=== PATIENT | female | born 1985 | race Caucasian/White ===

== ENCOUNTER 2016-05-03 23:59 | Emergency (ER) | payer OTHER ==
[2016-05-04 00:05] VITALS: BP 120/76; PULSE 82; TEMP 98.9; BMI 23.3
--- NOTE | 2016-05-04 01:40 | PDOC ---
History of Present Illness - General Chief Complaint: Pain Stated Complaint: BACK PAIN Time Seen by Provider: 05/04/16 00:53 - History of Present Illness Initial Comments: This 30-year-old woman with significant past medical history presents with 2 day history of intermittent right flank pain. Patient states that approximately 24 hours prior to presentation, she had onset of sharp pain in the right CVA/flank area. This was accompanied by mild nausea without vomiting. No fever/chills. Patient denies hematuria/urinary frequency or urgency or dysuria. No previous history of kidney stones or UTI. Patient took Tylenol with resolution of the pain last night. This evening, approximately 3 hours prior to presentation, patient had onset of similar pain. The patient had eaten approximately 2 hours prior to the onset of pain in each episode. No history of gallstones or other biliary pathology. She has irritable bowel syndrome but no other gastrointestinal issues. Family history of fatty liver but no known history of kidney stones or gallbladder disease. LMP approximately 5 days ago; normal duration (2 days) and flow Past History - Past Medical History Allergies/Adverse Reactions: Allergies Allergy/AdvReac Type Severity Reaction Status Date / Time No Known Allergies Allergy Unverified 05/04/16 00:05 Home Medications: Ambulatory Orders Nitrofurantoin Monohyd/M-Cryst [Macrobid -] 100 mg PO BID #14 capsule 05/04/16 - Psycho/Social/Smoking Cessation Hx Anxiety: No Suicidal Ideation: No Smoking History: Unknown if ever smoked Have you smoked in the past 12 months: No Number of Cigarettes Smoked Daily: 0 Information on smoking cessation initiated: No Hx Alcohol Use: No Drug/Substance Use Hx: No Substance Use Type: None Review of Systems - Review of Systems Able to Perform ROS?: Yes Comments:: 12 point review of systems is negative except for what is noted in the history of present illness *Physical Exam - Vital Signs Last Vital Signs Temp Pulse Resp BP Pulse Ox 98.9 F 82 14 120/76 100 05/04/16 00:02 05/04/16 00:02 05/04/16 00:02 05/04/16 00:02 05/04/16 00:02 - Physical Exam Comments: GENERAL: HEAD: Normal with no signs of trauma. EYES: PERRLA, EOMI, sclera anicteric, conjunctiva clear. ENT: Ears normal, nares patent, oropharynx clear without exudates. Dry mucous membranes. NECK: Normal range of motion, supple without lymphadenopathy, JVD, or masses. LUNGS: Breath sounds equal, clear to auscultation bilaterally. No wheezes, and no crackles. HEART:Regular rate and rhythm, normal S1 and S2 without murmur, rub or gallop. ABDOMEN:.normal bowel sounds No guarding,tenderness or rebound.No masses No distention. No Burk sign Mild right CVA tenderness EXTREMITIES: Normal range of motion, no edema. No clubbing or cyanosis. No erythema, or tenderness. NEUROLOGICAL: Cranial nerves II through XII grossly intact. Normal speech. No focal neurological deficits. MUSCULOSKELETAL: Back non-tender to palpation, no CVA tenderness SKIN: Warm, Dry, normal turgor, no rashes or lesions noted. ED Treatment Course - LABORATORY CBC & Chemistry Diagram: 05/04/16 01:40 05/04/16 01:40 Progress Note - Progress Note Progress Note: Patient given 1 L of normal saline IV along with 30 mg of Toradol IV for analgesia. Laboratory evaluation notable for white blood cell count of 14,600. Remainder of the CBC as well as complete chemistry profile is essentially normal. Urinalysis shows evidence of urinary tract infection with positive nitrate/2+ LE /multiple red blood cells and white blood cell/rare epi cells and many bacteria Patient much more comfortable after Toradol and hydration. Results discussed with the patient. Because the urinalysis is so suggestive of urinary tract infection, urine culture and sensitivity sent. Empirical treatment of the probable UTI is warranted considering the patient presented with right flank pain. Although renal abscess is possible, unlikely in this setting(patient is afebrile/with mild pain). Therefore, we will defer CT imaging at this point. Patient understands; all questions were answered. Patient agrees to the plan of empirical treatment of her UTI (Macrodantin for 7 days or until culture and sensitivity of urine is completed). Meanwhile, the patient has worsening of her pain, develops fever/chills or persistent nausea/vomiting, she should return to the emergency room immediately. Patient has plan to follow-up with her PMD, Dr. Roxann Crawford, within the next 2 -3 days First dose of nitrofurantoin (100 mg) given to the patient here in the emergency room *DC/Admit/Observation/Transfer Diagnosis at time of Disposition: Right flank discomfort UTI (urinary tract infection) Qualifiers: Urinary tract infection type: site unspecified Hematuria presence: with hematuria Qualified Code(s): N39.0 - Urinary tract infection, site not specified - Discharge Dispostion Disposition: HOME Condition at time of disposition: Stable Admit: No - Prescriptions Prescriptions: Nitrofurantoin Monohyd/M-Cryst [Macrobid -] 100 mg PO BID #14 capsule - Referrals Referrals: Roxann Newton MD [Staff Physician] - 3 days - Patient Instructions Printed Discharge Instructions: DI for Flank Pain Additional Instructions: drink plenty of water ibuprofen/naproxen/acetaminophen as needed for pain Macrobid 100mg twice a day followup with Dr Vasquez within 2-3 days return to the ER if you have worsening pain/vomiting/fever
[2016-05-04] MEDS ORDERED: SODIUM CHLORIDE 1,000 ML IV STA (01:44)
[2016-05-04] MEDS ORDERED: KETOROLAC TROMETHAMINE 30 MG/1 ML VIAL IVPUSH ONE (01:44)
[2016-05-04] MEDS ORDERED: KETOROLAC TROMETHAMINE 30 MG/1 ML VIAL ONE (01:58)
[2016-05-04 02:29] LABS: URINE APPEARANCE SLCLOUDY; URINE BILIRUBIN NEGATIVE (NEGATIVE); URINE COLOR LTYELLOW; URINE GLUCOSE (UA) NEGATIVE (NEGATIVE); URINE KETONE NEGATIVE (NEGATIVE); URINE NITRITE POSITIVE (NEGATIVE); URINE UROBILINOGEN NEGATIVE E.U./dl (0.2-1.0)
[2016-05-04 02:30] LABS: BASOPHIL 0.6 % (0-2.0); EOSINOPHIL 1.8 % (0-4.5); MCHC 33.4 g/dl (32.0-36.0); MEAN CELL VOLUME 86.8 fl (80-96); MEAN PLT VOLUME 8.3 fl (7.5-11.1); NEUTROPHILS 73.9 % (42.8-82.8); PLATELET COUNT 288 K/MM3 (134-434); RDW 13.1 % (11.6-15.6); WHITE BLOOD COUNT 14.6 K/mm3 (4.0-10.0)
[2016-05-04 02:31] LABS: URINE BLOOD 3+ (NEGATIVE); URINE LEUK ESTERASE 2+ (NEGATIVE); URINE PROTEIN 1+ (NEGATIVE)
[2016-05-04 03:05] LABS: ALK PHOS 107 U/L (45-117); ANION GAP 12 (8-16); BILIRUBIN,TOTAL 0.4 mg/dL (0.2-1.0); CALCIUM 8.9 mg/dL (8.5-10.1); CO2 27 mmol/L (21-32); CREATININE 0.6 mg/dL (0.55-1.02); GLUCOSE,RANDOM 91 mg/dL (74-106); SGPT/ALT 26 U/L (12-78); TOT PROT 7.3 g/dl (6.4-8.2)
[2016-05-04 03:06] LABS: SGOT/AST 15 U/L (15-37)
[2016-05-04 03:24] LABS: URINE BACTERIA MANY /hpf (NONE SEEN); URINE MUCUS RARE; URINE RBC 20 /hpf (0-3); URINE WBC 59 /hpf (3-5)
[2016-05-04] MEDS ORDERED: NITROFURANTOIN MACROCRYSTAL 50 MG CAPSULE (FP) PO SCH (03:45)
[2016-05-04] MEDS ORDERED: NITROFURANTOIN MACROCRYSTAL 50 MG CAPSULE (FP) ONE (03:49)
== END 2016-05-04 03:57 | disposition home or self-care (01) ==
LOC: FER 23:59
PROC: 3E0333Z Introduction of Anti-inflammatory into Peripheral Vein, Percutaneous Approach (ICD-10-PCS; principal; 2016-05-03)
PROC: 3E0337Z Introduction of Electrolytic and Water Balance Substance into Peripheral Vein, Percutaneous Approach (ICD-10-PCS; 2016-05-03)
DX: N39.0 Urinary tract infection, site not specified (principal); R10.31 Right lower quadrant pain
CPT/HCPCS: 36415; 80053; 81003; 81015; 84703; 85025; 87086; 87186; 99283-25

== ENCOUNTER 2016-11-19 09:08 | Emergency (ER) | payer OTHER ==
[2016-11-19 09:21] VITALS: BP 123/73; PULSE 58; TEMP 98.6; BMI 29.9
--- NOTE | 2016-11-19 09:23 | PDOC ---
Attending Attestation - Resident Resident Name: Jorge Alberto Tai - ED Attending Attestation I have performed the following: I have examined & evaluated the patient, The case was reviewed & discussed with the resident, I agree w/resident's findings & plan, Exceptions are as noted - HPI HPI: 11/19/16 09:20 Nausea and Vomiting - Physicial Exam PE: 11/19/16 09:21 VSS, NAD, NONTOXIC - Medical Decision Making 11/19/16 09:[address] Tai's Assessment and Plan
[2016-11-19] MEDS ORDERED: ONDANSETRON 4 MG/2 ML VIAL IVPUSH ONE (09:41)
[2016-11-19] MEDS ORDERED: SODIUM CHLORIDE 1,000 ML IV STA ×2 (09:41→10:46)
[2016-11-19] MEDS ORDERED: ONDANSETRON 4 MG/2 ML VIAL ONE (10:02)
--- NOTE | 2016-11-19 10:11 | PDOC ---
History of Present Illness - General Chief Complaint: Nausea/Vomiting Stated Complaint: NAUSEA/VOMITING Time Seen by Provider: 11/19/16 09:12 History Source: Patient Exam Limitations: No Limitations - History of Present Illness Initial Comments: 11/19/16 10:09 31 y.o F wtih no pmh presented with n/v. Patient states she was at a wedding last night and drank too much alcohol and is now hungover. Patient state she had a bottle of wine and had nausea, 6 episodes of emesis. Patient's last drink was last night. Patient denies any fever, chills, d/c, chest pain, sob, abdominal pain. PSH: cyst removal, carpal tunnel all- nkda SH- occasional alcohol use PCP- Dr. Roxann Crawford Past History - Past Medical History Allergies/Adverse Reactions: Allergies Allergy/AdvReac Type Severity Reaction Status Date / Time No Known Allergies Allergy Unverified 11/19/16 09:20 Home Medications: Ambulatory Orders NK [No Known Home Medication] 11/19/16 Thyroid Disease: No - Suicide/Smoking/Psychosocial Hx Smoking History: Unknown if ever smoked Have you smoked in the past 12 months: No Number of Cigarettes Smoked Daily: 0 Information on smoking cessation initiated: No Hx Alcohol Use: No Drug/Substance Use Hx: No Substance Use Type: None Review of Systems - Review of Systems Able to Perform ROS?: Yes Comments:: 11/19/16 10:09 GENERAL/CONSTITUTIONAL: No fever or chills. No weakness. HEAD, EYES, EARS, NOSE AND THROAT: No change in vision. No ear pain or discharge. No sore throat. CARDIOVASCULAR: No chest pain or shortness of breath RESPIRATORY: No cough, wheezing, or hemoptysis. GASTROINTESTINAL: +nausea, +vomiting, No diarrhea or constipation. GENITOURINARY: No dysuria, frequency, or change in urination. MUSCULOSKELETAL: No joint or muscle swelling or pain. No neck or back pain. SKIN: No rash NEUROLOGIC: No headache, vertigo, loss of consciousness, or change in strength/ sensation. ENDOCRINE: No increased thirst. No abnormal weight change HEMATOLOGIC/LYMPHATIC: No anemia, easy bleeding, or history of blood clots. ALLERGIC/IMMUNOLOGIC: No hives or skin allergy. *Physical Exam - Vital Signs Last Vital Signs Temp Pulse Resp BP Pulse Ox 98.6 F 58 L 18 123/73 98 10/15/17 09:10 11/19/16 09:10 11/19/16 09:10 11/19/16 09:10 11/19/16 09:10 - Physical Exam Comments: 11/19/16 10:09 GENERAL: Awake, alert, and fully oriented, in no acute distress HEAD: No signs of trauma, normocephalic, atraumatic EYES: PERRLA, EOMI, sclera anicteric, conjunctiva clear ENT: Auricles normal inspection, hearing grossly normal, nares patent, oropharynx clear without exudates. Dry mucosa NECK: Normal ROM, supple, no lymphadenopathy, JVD, or masses LUNGS: No distress, speaks full sentences, clear to auscultation bilaterally HEART: Regular rate and rhythm, normal S1 and S2, no murmurs, rubs or gallops, peripheral pulses normal and equal bilaterally. ABDOMEN: Soft, nontender, normoactive bowel sounds. No guarding, no rebound. No masses EXTREMITIES: Normal inspection, Normal range of motion, no edema. No clubbing or cyanosis. NEUROLOGICAL: Cranial nerves II through XII grossly intact. Normal speech, normal gait, no focal sensorimotor deficits SKIN: Warm, Dry, normal turgor, no rashes or lesions noted. Medical Decision Making - Medical Decision Making 11/19/16 10:12 31 y.o. F with no pmh presenting with n/v. Plan: IVF and Zofran. 11/19/16 10:45 Patient feels much better. Stable for discharge *DC/Admit/Observation/Transfer Diagnosis at time of Disposition: Vomiting Qualifiers: Vomiting type: unspecified Vomiting Intractability: unspecified Nausea presence : unspecified Qualified Code(s): R11.10 - Vomiting, unspecified; R11.10 - Vomiting, unspecified - Discharge Dispostion Disposition: HOME Condition at time of disposition: Stable - Referrals Referrals: Roxann Newton MD [Primary Care Provider] - - Patient Instructions Printed Discharge Instructions: DI for Vomiting -- Adult Additional Instructions: Follow up with your primary care provider. If you have chest pain, shortness of breath, or any new/worsening symptoms please come back to the hospital immediately
== END 2016-11-19 11:40 | disposition home or self-care (01) ==
LOC: JER 09:08
PROC: 3E0337Z Introduction of Electrolytic and Water Balance Substance into Peripheral Vein, Percutaneous Approach (ICD-10-PCS; principal; 2016-11-19)
PROC: 3E033GC Introduction of Other Therapeutic Substance into Peripheral Vein, Percutaneous Approach (ICD-10-PCS; 2016-11-19)
DX: R11.2 Nausea with vomiting, unspecified (principal)
CPT/HCPCS: 99282-25

== ENCOUNTER 2017-06-23 18:47 | Emergency (ER) | payer OTHER ==
[2017-06-23 19:10] VITALS: BP 118/72; PULSE 82; TEMP 98.3; BMI 31.8
--- NOTE | 2017-06-23 20:53 | PDOC ---
History of Present Illness - General Chief Complaint: Pain, Acute Stated Complaint: LT LEG PAIN/BURNING SENSATION Time Seen by Provider: 06/23/17 20:44 History Source: Patient Exam Limitations: No Limitations - History of Present Illness Initial Comments: 06/23/17 21:11 This is a 31-year-old woman without significant past medical history presents emergency Department with a burning sensation to the left medial calf for the past 3 days. Patient denies any trauma, fevers, prolonged immobility, recent surgeries. Patient denies change in function related to the burning sensation. Past History - Past Medical History Allergies/Adverse Reactions: Allergies Allergy/AdvReac Type Severity Reaction Status Date / Time No Known Allergies Allergy Unverified 06/23/17 19:10 Home Medications: Ambulatory Orders NK [No Known Home Medication] 11/19/16 COPD: No Thyroid Disease: No - Suicide/Smoking/Psychosocial Hx Smoking History: Unknown if ever smoked Have you smoked in the past 12 months: No Number of Cigarettes Smoked Daily: 0 Hx Alcohol Use: No Drug/Substance Use Hx: No Substance Use Type: None Review of Systems - Review of Systems Able to Perform ROS?: Yes Is the patient limited Welsh proficient: No Constitutional: No: Symptoms Reported HEENTM: No: Symptoms Reported Respiratory: No: Symptoms reported Cardiac (ROS): No: Symptoms Reported ABD/GI: No: Symptoms Reported : No: Symptoms Reported Musculoskeletal: Yes: See HPI Integumentary: No: Symptoms Reported Neurological: No: Symptoms reported Endocrine: No: Symptoms Reported Hematologic/Lymphatic: No: Symptoms Reported *Physical Exam - Vital Signs Last Vital Signs Temp Pulse Resp BP Pulse Ox 98.3 F 82 18 118/72 98 06/23/17 19:07 06/23/17 19:07 06/23/17 19:07 06/23/17 19:07 06/23/17 19:07 - Physical Exam General Appearance: Yes: Appropriately Dressed. No: Apparent Distress HEENT: positive: Normal ENT Inspection Neck: positive: Trachea midline, Supple Respiratory/Chest: positive: Lungs Clear, Normal Breath Sounds. negative: Respiratory Distress, Accessory Muscle Use Cardiovascular: positive: Regular Rhythm, Regular Rate, S1, S2. negative: Edema , Murmur Vascular Pulses: Dorsalis-Pedis (R): 2+, Doralis-Pedis (L): 2+ Gastrointestinal/Abdominal: positive: Normal Bowel Sounds, Soft. negative: Tender Musculoskeletal: positive: Normal Inspection, Other (Tightness to palpation of the medial left calf when compared to the right side). negative: CVA Tenderness Extremity: positive: Normal Inspection, Normal Range of Motion, Other (see M/S assessment) Integumentary: positive: Normal Color, Dry, Warm Neurologic: positive: Alert, Normal Response ED Treatment Course - RADIOLOGY Radiology Studies Ordered: Category Date Time Status DUPLEX VASCUL US-1 LEG [US] Stat Ultrasound 06/23/17 20:53 Ordered Medical Decision Making - Medical Decision Making 06/23/17 21:14 A/P: 31-year-old woman without significant past medical history with 3 days of left medial calf burning Left calf without erythema, cords, swelling, compared to the right calf. 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 No evidence of DVT. I will discharge the patient home with instructions to take Tylenol or Motrin as needed for pain. Patient to follow-up with her primary doctor within 1 week if symptoms do not resolve. *DC/Admit/Observation/Transfer Diagnosis at time of Disposition: Leg pain, medial Qualifiers: Laterality: left Qualified Code(s): M79.605 - Pain in left leg - Discharge Dispostion Disposition: HOME Condition at time of disposition: Stable Decision to Admit order: No - Referrals - Patient Instructions Additional Instructions: Take Tylenol or Motrin as needed for fevers and/or pain. Make appointment with her primary doctor for reevaluation within the next 7 days. Return to emergency department for worsening pain, swelling, redness or any other concerns. - Post Discharge Activity
== END 2017-06-23 22:30 | disposition home or self-care (01) ==
LOC: JER 18:47
DX: M79.662 Pain in left lower leg (principal); R20.8 Other disturbances of skin sensation
CPT/HCPCS: 93971-TC; 99281-25

== ENCOUNTER 2018-04-23 13:42 | Emergency (ER) | payer OTHER ==
[2018-04-23 13:49] VITALS: BMI 33.8
[2018-04-23 13:54] VITALS: BP 122/70; PULSE 67; TEMP 98.5
[2018-04-23] MEDS ORDERED: ONDANSETRON 4 MG/2 ML VIAL IVPB ONE (14:31)
[2018-04-23] MEDS ORDERED: SODIUM CHLORIDE 1,000 ML IV ONE (14:31)
[2018-04-23] MEDS ORDERED: FAMOTIDINE 20 MG/50 ML IVPB 20 MG/50 ML MG IVPB ONE ×2 (14:33→14:47)
[2018-04-23] MEDS ORDERED: ACETAMINOPHEN 1000 MG/100 ML VIAL (NON FORMULARY) IVPB ONE (14:33)
[2018-04-23 14:39] LABS: HCG,QUALITATIVE URINE NEGATIVE
[2018-04-23 14:40] LABS: PH,URINE 5.5 (4.5-8); URINE APPEARANCE CLEAR; URINE BILIRUBIN 1+ (NEGATIVE); URINE COLOR YELLOW; URINE GLUCOSE (UA) NEGATIVE (NEGATIVE); URINE KETONE 1+ (NEGATIVE)
[2018-04-23 14:41] LABS: URINE LEUK ESTERASE NEGATIVE (NEGATIVE); URINE NITRITE NEGATIVE (NEGATIVE); URINE PROTEIN 1+ (NEGATIVE); URINE UROBILINOGEN 0.2 (0.2-1.0)
--- NOTE | 2018-04-23 14:46 | PDOC ---
History of Present Illness - General History Source: Patient Exam Limitations: No Limitations - History of Present Illness Initial Comments: 04/23/18 14:54 The patient is a 32 year old female, with a significant PMH of IBSC, ovarian cysts, thyroid cysts, and ganglion cysts, who presents to the emergency department today for evaluation of 1 day of constant epigastric and suprapubic abdominal pain, along with right flank cramping/spasm sensation. The patient states she woke up this morning around 3:30am, where she felt very bloated and gassy, which she states is normal for her. She notes that later on in the morning is when the abdominal pain started, which was severe at onset but is currently a 6/10. Patient reports several attempts at bowel movements today, starting off as little pellets and straining, and later on observing only clear mucus. Patient notes last PO was yesterday around 6:30 pm. She reports nausea without vomiting and a subjective fever. Patient has had a colonoscopy and endoscopy when she was a teenager. LMP about a month ago. The patient denies chest pain, shortness of breath, headache and dizziness. Denies dysuria, frequency, urgency and hematuria. Allergies: NKA Past surgical history: None Reported Social history: None reported PCP: Dr. Roxann Newton <Savannah Mercado - Last Filed: 04/23/18 14:54> <Amador Myers - Last Filed: 04/23/18 18:01> - General Chief Complaint: Pain, Acute Stated Complaint: abd pain Time Seen by Provider: 04/23/18 14:04 Past History <Savannah Mercado - Last Filed: 04/23/18 14:54> - Past Medical History COPD: No GI Disorders: Yes (ibs) Thyroid Disease: No - Immunization History Immunization Up to Date: Yes - Suicide/Smoking/Psychosocial Hx Smoking History: Never smoked Have you smoked in the past 12 months: No Number of Cigarettes Smoked Daily: 0 Hx Alcohol Use: No Drug/Substance Use Hx: No Substance Use Type: None <Amador Myers - Last Filed: 04/23/18 18:01> - Past Medical History Allergies/Adverse Reactions: Allergies Allergy/AdvReac Type Severity Reaction Status Date / Time No Known Allergies Allergy Verified 04/23/18 13:43 Home Medications: Ambulatory Orders Ondansetron [Zofran *Odt*] 8 mg SL TID PRN #20 od.tablet 04/23/18 Review of Systems - Review of Systems Constitutional: No: Chills, Fever Respiratory: No: Cough, Shortness of Breath ABD/GI: Yes: Constipated (baseline constipated), Diarrhea (mucousy stool today) , Nausea. No: Vomiting : No: Dysuria, Flank Pain, Hematuria Neurological: No: Headache All Other Systems: Reviewed and Negative <Amador Myers - Last Filed: 04/23/18 18:01> *Physical Exam - Vital Signs Last Vital Signs Temp Pulse Resp BP Pulse Ox 98.5 F 67 17 122/70 99 04/23/18 13:43 04/23/18 13:43 04/23/18 13:43 04/23/18 13:43 04/23/18 13:43 - Physical Exam Comments: 04/23/18 14:55 GENERAL: The patient is awake, alert, and fully oriented, in no acute distress. HEAD: Normal with no signs of trauma. EYES: Pupils equal, round and reactive to light, extraocular movements intact, sclera anicteric, conjunctiva clear with no pallor. ENT: Ears normal, nares patent, oropharynx clear without exudates. Slightly mucous membranes. ABDOMEN: (+)epigastric discomfort to palpation. Soft, nondistended. BS wnl. No guarding or rebound. No palpable masses. No hepatosplenomegaly. EXTREMITIES: Normal range of motion, no edema. No clubbing or cyanosis. No cords, erythema, or tenderness. NEUROLOGICAL: Cranial nerves II through XII grossly intact. Normal speech. PSYCH: Normal mood, normal affect. SKIN: Warm, Dry, normal turgor, no rashes or lesions noted. <Savannah Mercado - Last Filed: 04/23/18 14:54> - Vital Signs Last Vital Signs Temp Pulse Resp BP Pulse Ox 98.5 F 67 17 122/70 99 04/23/18 13:43 04/23/18 13:43 04/23/18 13:43 04/23/18 13:43 04/23/18 13:43 <Amador Myers - Last Filed: 04/23/18 18:01> Moderate Sedation - Procedure Monitoring Vital Signs: Procedure Monitoring Vital Signs Temperature 98.5 F 04/23/18 13:43 Pulse Rate 67 04/23/18 13:43 Respiratory Rate 17 04/23/18 13:43 Blood Pressure 122/70 04/23/18 13:43 O2 Sat by Pulse Oximetry (%) 99 04/23/18 13:43 <Savannah Mercado - Last Filed: 04/23/18 14:54> - Procedure Monitoring Vital Signs: Procedure Monitoring Vital Signs Temperature 98.5 F 04/23/18 13:43 Pulse Rate 67 04/23/18 13:43 Respiratory Rate 17 04/23/18 13:43 Blood Pressure 122/70 04/23/18 13:43 O2 Sat by Pulse Oximetry (%) 99 04/23/18 13:43 <Amador Myers - Last Filed: 04/23/18 18:01> Heart Score/ECG Review #1 ECG reviewed & interpreted by me at: 15:31 General ECG Interpretation: Sinus Rhythm, Normal Rate (76), Normal Intervals ( qtc 445), No acute ischemic changes <Amador Myers - Last Filed: 04/23/18 18:01> ED Treatment Course - LABORATORY CBC & Chemistry Diagram: 04/23/18 14:46 04/23/18 14:46 - ADDITIONAL ORDERS Additional order review: Laboratory Results 04/23/18 13:58 Urine Color Yellow Urine Appearance Clear Urine pH 5.5 Ur Specific [place] >= 1.030 Urine Protein 1+ H Urine Glucose (UA) Negative Urine Ketones 1+ H Urine Blood 2+ H Urine Nitrite Negative Urine Bilirubin 1+ H Urine Urobilinogen 0.2 Ur Leukocyte Esterase Negative Urine HCG, Qual Negative <Savannah Mercado - Last Filed: 04/23/18 14:54> - LABORATORY CBC & Chemistry Diagram: 04/23/18 14:46 04/23/18 14:46 <Amador Myers - Last Filed: 04/23/18 18:01> Medical Decision Making - Medical Decision Making 04/23/18 14:41 32y/o F h/o IBS with baseline constipation, no surgical history, p/w diffuse abdominal cramping/n/diarrhea since this morning. awoke with her baseline bloating and flatulence, subsequently had diffuse cramping now localized to the epigastric region, associated with nausea and mucousy nonbloody diarrhea. no f/ c. unlike her IBS flares so presents for evaluation. currently off all IBS meds for one year as per her GI. vss, pending well appearing, no jaundice slightly dry mucosa s1s2 rrr, ctab soft/nd. epigastric discomfort to palpation without guarding/rebound. 32y/o F hospital employee, history of IBS with abd cramping/n/diarrhea, nonfocal abd exam without peritoneal findings. presentation seems most consistent with gastritis/dyspepsia/gastroenteritis, less likely biliary/ pancreatitis or focal infectious process such as appendicitis/diverticulitis. not consistent with obstruction. r/o uti. labs, ua ivf, antacid, antiemetic, pain control no indication for emergent imaging at this time reassess 04/23/18 17:08 feels markedly improved, tolerating PO with benign abdominal exam. feels sore but no focal pain, no further diarrhea. lipase delayed in results, but low suspicion for pancreatitis in this case. Will d/c and f/u lipase results. Agrees with plan for pepcid, anti-emetic, and GI f/u. understands return criteria. 04/23/18 18:00 lipase returned and normal <Amador Myers - Last Filed: 04/23/18 18:01> *DC/Admit/Observation/Transfer - Attestations Scribe Attestion: 04/23/18 14:55 Documentation prepared by Savannah Mercado, acting as medical aide for Amador Myers MD. <Savannah Mercado - Last Filed: 04/23/18 14:54> <Amador Myers - Last Filed: 04/23/18 18:01> Diagnosis at time of Disposition: Abdominal pain Qualifiers: Abdominal location: generalized Qualified Code(s): R10.84 - Generalized abdominal pain Diarrhea Qualifiers: Diarrhea type: unspecified type Qualified Code(s): R19.7 - Diarrhea, unspecified - Discharge Dispostion Disposition: HOME Condition at time of disposition: Improved - Prescriptions Prescriptions: Ondansetron [Zofran *Odt*] 8 mg SL TID PRN #20 od.tablet PRN Reason: Nausea - Referrals Referrals: Roxann Newton MD [Primary Care Provider] - Marshal Richard MD [Staff Physician] - - Patient Instructions Printed Discharge Instructions: DI for Diarrhea and Traveler's Diarrhea -- Adult, DI for Dyspepsia Additional Instructions: Activity as tolerated. Stay hydrated. Blood tests and a urine test showed no acute abnormalities. Your symptoms may be due to a stomach/gastritis flare or a viral illness. Tylenol 1000 mg every 8 hours as needed for pain. Zofran as prescribed as needed for nausea. Pepcid 20mg twice daily for one week (this is available over the counter). Advance diet as tolerated, avoiding dairy, spicy or fatty food, caffeine and alcohol. Continue your medications as previously prescribed by your physician. You should follow up with your primary doctor and Dr. Richard as soon as possible regarding today's emergency department visit. Return to the emergency department for any new or concerning symptoms, particularly persistent or localized or worsening pain, bloody vomit or stool, fever/chills, severe vomiting/diarrhea/dehydration. - Post Discharge Activity
[2018-04-23] MEDS ORDERED: ONDANSETRON 4 MG/2 ML VIAL ONE ×2 (14:47→14:55)
[2018-04-23] MEDS ORDERED: ACETAMINOPHEN INJECTION 100 ML IVPB ONE (14:47)
[2018-04-23 14:54] LABS: BASO % 3.7 % (0-2.0); EOS % 1.3 % (0-4.5); HEMATOCRIT 40.3 % (32.4-45.2); HEMOGLOBIN 13.3 GM/dl (10.7-15.3); LYMPH % 17.9 % (8-40); MCH 29.2 pg (25.7-33.7); MEAN CELL VOLUME 88.2 fl (80-96); MONO % 5.7 % (3.8-10.2); NEUT % 71.4 % (42.8-82.8); PLATELET COUNT 259 K/MM3 (134-434); RBC 4.57 M/mm3 (3.60-5.2); RDW 12.4 % (11.6-15.6); WHITE BLOOD COUNT 12.8 K/mm3 (4.0-10.8)
[2018-04-23 14:59] LABS: EPI CELLS 3+ /HPF; URINE BACTERIA 1+ /hpf (NEGATIVE); URINE MUCUS 3+
[2018-04-23 15:12] LABS: ALBUMIN 4.3 g/dl (3.4-5.0); ALK PHOS 68 U/L (45-117); ANION GAP 7 MMOL/L (8-16); BILIRUBIN,TOTAL 1.1 mg/dl (0.2-1); BLOOD UREA NITROGEN 19 mg/dl (7-18); CALCIUM 8.8 mg/dl (8.5-10); CHLORIDE 102 mmol/L (98-107); CO2 23 mmol/L (21-32); GLUCOSE,RANDOM 82 mg/dl (74-106); POTASSIUM 3.9 mmol/L (3.5-5.1); SGOT/AST 20 U/L (15-37); SGPT/ALT 27 U/L (13-61); SODIUM 132 mmol/L (136-145)
[2018-04-23 15:36] LABS: CREATININE 0.7 mg/dl (0.55-1.3)
[2018-04-23 17:52] LABS: LIPASE 70 U/L (73-393)
--- NOTE | 2018-04-24 11:01 | EKG ---
Test Reason : Blood Pressure : / mmHG Vent. Rate : 076 BPM Atrial Rate : 076 BPM P-R Int : 146 ms QRS Dur : 082 ms QT Int : 396 ms P-R-T Axes : 040 052 024 degrees QTc Int : 445 ms NORMAL SINUS RHYTHM NORMAL ECG NO PREVIOUS ECGS AVAILABLE Confirmed by PASTORA RASHEED, ALEX ([id number]) on 04/24/2018 11:01:21 AM Referred By: DR CIFUENTES Confirmed By:ALEX GUILLORY MD
== END 2018-04-23 17:34 | disposition home or self-care (01) ==
LOC: FER 13:42
PROC: 3E0233Z Introduction of Anti-inflammatory into Muscle, Percutaneous Approach (ICD-10-PCS; principal; 2018-04-23)
DX: S46.812A Strain of other muscles, fascia and tendons at shoulder and upper arm level, left arm, initial encounter (principal); X58.XXXA Exposure to other specified factors, initial encounter; Y93.89 Activity, other specified; Y92.89 Other specified places as the place of occurrence of the external cause
CPT/HCPCS: 36415; 80053; 81003; 81015; 83690; 84703; 85025; 87086; 93005; 99283-25; J0131; J7030

== ENCOUNTER 2019-03-25 14:48 | Emergency (ER) | payer OTHER ==
[2019-03-25 14:57] VITALS: BP 113/71; PULSE 98; TEMP 98; BMI 34.7
--- NOTE | 2019-03-25 14:57 | PDOC ---
Rapid Medical Evaluation Time Seen by Provider: 03/25/19 14:50 Medical Evaluation: Allergies Allergy/AdvReac Type Severity Reaction Status Date / Time No Known Allergies Allergy Verified 03/25/19 14:51 03/25/19 14:51 Pt presents to the ER after getting fluid in her eye. 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 She flushed her eye for 15 minutes before coming down Exam: erythematous eyes b/l Orders: Nothing Pt to proceed to the ER for further evaluation Discharge Disposition - Diagnosis Employee exposure to body fluids - Referrals - Patient Instructions - Post Discharge Activity
[2019-03-25] MEDS ORDERED: DIPHTH,PERTUSS(ACELL),TET 0.5 ML DISP.SYRIN IM ONE ×2 (15:44→15:47)
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
[2019-03-25 15:54] LABS: BASO % 0.8 % (0-2.0); HEMATOCRIT 41.1 % (32.4-45.2); HEMOGLOBIN 13.7 GM/dL (10.7-15.3); LYMPH % 32.1 % (8-40); MCH 29.4 pg (25.7-33.7); MCHC 33.3 g/dl (32.0-36.0); MEAN CELL VOLUME 88.3 fl (80-96); MEAN PLT VOLUME 7.6 fl (7.5-11.1); MONO % 6.1 % (3.8-10.2); PLATELET COUNT 328 K/MM3 (134-434); RBC 4.66 M/mm3 (3.60-5.2); RDW 13.3 % (11.6-15.6); WHITE BLOOD COUNT 11.7 K/mm3 (4.0-10.0)
[2019-03-25 16:21] LABS: ALBUMIN 4.1 g/dl (3.4-5.0); BILIRUBIN,TOTAL 0.4 mg/dL (0.2-1); BLOOD UREA NITROGEN 15.8 mg/dL (7-18); CALCIUM 9.1 mg/dL (8.5-10.1); CREATININE 0.6 mg/dL (0.55-1.3); TOT PROT 7.6 g/dl (6.4-8.2)
[2019-03-27 04:16] LABS: HEP B CORE AB, TOT Negative (Negative)
== END 2019-03-25 15:51 | disposition home or self-care (01) ==
LOC: JERFT 14:48
DX: Z77.21 Contact with and (suspected) exposure to potentially hazardous body fluids (principal); Y92.234 Operating room of hospital as the place of occurrence of the external cause; Y99.0 Civilian activity done for income or pay
CPT/HCPCS: 36415; 80053; 85025; 86317; 86704; 86706; 86803; 87340; 87389; 90715; 99283-25

== ENCOUNTER 2021-02-05 17:15 | Emergency (ER) | payer BC ==
[2021-02-05 17:21] VITALS: BP 127/78; PULSE 87; TEMP 98.6; BMI 34.7
== END 2021-02-05 17:55 | disposition home or self-care (01) ==
LOC: JER 17:15
DX: Z20.822 Contact with and (suspected) exposure to COVID-19 (principal)
CPT/HCPCS: 99283-25; C9803; U0003; U0005